=== PATIENT | male | born 1965 | race Caucasian/White ===

== ENCOUNTER 2017-12-21 07:43 | Emergency (ER) | payer SELFPAY ==
[~2017-12-21] VITALS: Ht 167.6 cm; Wt 66.9 kg
[2017-12-21] MEDS ORDERED: DIPHENHYDRAMINE 50 MG/ML, 1ML ONE (08:26)
[2017-12-21] MEDS ORDERED: methylPREDNISolone SOD SUCC 125 MG/2 ML ONE (08:26)
[2017-12-21] MEDS ORDERED: FAMOTIDINE 20 MG/2 ML ONE (08:26)
[2017-12-21] MEDS ORDERED: DIPHENHYDRAMINE 50 MG/ML, 1ML IVPush ONE (08:30)
[2017-12-21] MEDS ORDERED: methylPREDNISolone SOD SUCC 125 MG/2 ML IVPush ONE (08:30)
[2017-12-21] MEDS ORDERED: FAMOTIDINE 20 MG/2 ML IVPush ONE (08:30)
[2017-12-21 10:10] VITALS: BP 114/76
== END 2017-12-21 10:13 | disposition home or self-care (01) ==
LOC: ED 10:07
DX: T78.3XXA Angioneurotic edema, initial encounter (principal); T78.40XA Allergy, unspecified, initial encounter; X58.XXXA Exposure to other specified factors, initial encounter; F15.10 Other stimulant abuse, uncomplicated
CPT/HCPCS: 96374; 96375; 99284; J1200; J2930; S0028

== ENCOUNTER 2018-01-18 00:21 | Emergency (ER) | payer OTHER ==
[~2018-01-18] VITALS: Ht 175.3 cm; Wt 85.0 kg
[2018-01-18 00:23] VITALS: BP 111/74
== END 2018-01-18 00:44 | disposition left against medical advice (07) ==
LOC: ED 00:38
DX: R51 Headache (principal); Z53.21 Procedure and treatment not carried out due to patient leaving prior to being seen by health care provider

== ENCOUNTER 2018-02-18 04:59 | Emergency (ER) | payer SELFPAY ==
[~2018-02-18] VITALS: Ht 162.6 cm; Wt 57.9 kg
[2018-02-18 05:09] VITALS: BP 126/93
== END 2018-02-18 05:17 | disposition left against medical advice (07) ==
LOC: ED 05:10
DX: Z53.21 Procedure and treatment not carried out due to patient leaving prior to being seen by health care provider (principal)

== ENCOUNTER 2018-10-23 15:15 | Emergency (ER) | payer SELFPAY ==
[~2018-10-23] VITALS: Ht 162.6 cm; Wt 70.0 kg
[2018-10-23] MEDS ORDERED: THIAMINE 100 MG/ML, 2ML IM ONE (16:00)
[2018-10-23 16:06] LABS: BASOPHILS # (AUTO) 0.05 x10^3/uL (0-0.1); BASOPHILS % (AUTO) 1 % (0-1); EOSINOPHILS # (AUTO) 0.21 x10^3/uL (0-0.4); EOSINOPHILS % (AUTO) 3 % (1-7); LYMPHOCYTES % (AUTO) 38 % (22-44); MD NO; MEAN CORPUSCULAR HEMOGLOBIN 32.4 pg (27.5-34.5); MEAN CORPUSCULAR HGB CONC 33.6 g/dL (33.2-36.2); MEAN CORPUSCULAR VOLUME 96.6 fL (81-97); MEAN PLATELET VOLUME 8.6 fL (7.4-10.4); MONOCYTES # (AUTO) 0.52 x10^3/uL (0.2-0.8); MONOCYTES % (AUTO) 8 % (2-9); NEUTROPHILS # (AUTO) 3.53 x10^3/uL (1.8-6.8); NEUTROPHILS % (AUTO) 51 % (42-75); PLATELET COUNT 179 x10^3/uL (130-400); RED BLOOD COUNT 4.83 x10^6/uL (4.38-5.82); RED CELL DISTRIBUTION WIDTH 15.1 % (9.4-14.8)
[2018-10-23 16:12] LABS: ALBUMIN 3.8 g/dL (3.4-5.0); ANION GAP 8 mmol/L (5-15); CALCIUM 8.3 mg/dL (8.5-10.1); CHLORIDE 111 mmol/L (98-107); CREATININE 0.88 mg/dL (0.7-1.3)
[2018-10-23 20:51] VITALS: BP 118/71
[2018-10-23] MEDS ORDERED: IBUPROFEN 200 MG TABLET ONE (21:36)
[2018-10-23] MEDS ORDERED: IBUPROFEN 200 MG TABLET PO ONE (22:00)
== END 2018-10-23 21:50 ==
LOC: MERGE 21:45 → ED 21:45
DX: S09.90XA Unspecified injury of head, initial encounter (principal); F10.120 Alcohol abuse with intoxication, uncomplicated; X58.XXXA Exposure to other specified factors, initial encounter; Y93.89 Activity, other specified; Y92.89 Other specified places as the place of occurrence of the external cause; Y99.8 Other external cause status
CPT/HCPCS: 36415; 70450; 72125; 80048; 82040; 85025; 99284

== ENCOUNTER 2019-02-03 04:08 | Emergency (ER) | payer SELFPAY ==
[~2019-02-03] VITALS: Ht 167.6 cm; Wt 69.0 kg
[2019-02-03 04:10] VITALS: BP 121/76
--- NOTE | 2019-02-03 04:33 | NUR ---
PER REG PT HAS ELOPED. PT NOT IN LOBBY AT THIS TIME.
== END 2019-02-03 05:07 | disposition left against medical advice (07) ==
LOC: ED 04:29
DX: R07.0 Pain in throat (principal); Z53.21 Procedure and treatment not carried out due to patient leaving prior to being seen by health care provider

== ENCOUNTER 2019-04-22 18:13 | Emergency (ER) | payer SELFPAY ==
[~2019-04-22] VITALS: Ht 165.1 cm; Wt 80.0 kg
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
[2019-04-22 18:47] LABS: BASOPHILS # (AUTO) 0.03 x10^3/uL (0-0.1); BASOPHILS % (AUTO) 1 % (0-1); EOSINOPHILS # (AUTO) 0.07 x10^3/uL (0-0.4); EOSINOPHILS % (AUTO) 2 % (1-7); LYMPHOCYTES # (AUTO) 2.21 x10^3/uL (1-3.4); LYMPHOCYTES % (AUTO) 52 % (22-44); MD NO; MEAN CORPUSCULAR HEMOGLOBIN 35.2 pg (27.5-34.5); MEAN CORPUSCULAR HGB CONC 34.6 g/dL (33.2-36.2); MEAN CORPUSCULAR VOLUME 101.7 fL (81-97); MEAN PLATELET VOLUME 8.6 fL (7.4-10.4); MONOCYTES # (AUTO) 0.32 x10^3/uL (0.2-0.8); MONOCYTES % (AUTO) 7 % (2-9); NEUTROPHILS # (AUTO) 1.67 x10^3/uL (1.8-6.8); NEUTROPHILS % (AUTO) 39 % (42-75); PLATELET COUNT 107 x10^3/uL (130-400); RED BLOOD COUNT 3.73 x10^6/uL (4.38-5.82); RED CELL DISTRIBUTION WIDTH 15.8 % (9.4-14.8)
[2019-04-22 18:54] LABS: ALBUMIN 2.8 g/dL (3.4-5.0); ANION GAP 9 mmol/L (5-15); CALCIUM 7.6 mg/dL (8.5-10.1); CHLORIDE 109 mmol/L (98-107)
[2019-04-22 18:56] LABS: ALKALINE PHOSPHATASE 101 U/L (45-117)
[2019-04-22 19:13] LABS: ALANINE AMINOTRANSFERASE 93 U/L (12-78)
--- NOTE | 2019-04-22 19:39 | NUR ---
PT AMBULATED IN HALLWAY AND BACK INTO BED. POC DISCUSSED. PT GIVEN WATER PER REQUEST. PT DENIES FURTHER NEEDS AT THIS TIME.
[2019-04-22 19:40] VITALS: BP 110/65
--- NOTE | 2019-04-22 20:23 | NUR ---
PT GIVEN AXI VOUCHER FOR SAFE DC HOME
== END 2019-04-22 20:24 | disposition home or self-care (01) ==
LOC: ED 19:50
DX: G89.11 Acute pain due to trauma (principal); M25.512 Pain in left shoulder; S09.8XXA Other specified injuries of head, initial encounter; Z72.9 Problem related to lifestyle, unspecified; F10.10 Alcohol abuse, uncomplicated; F17.200 Nicotine dependence, unspecified, uncomplicated; Y00.XXXA Assault by blunt object, initial encounter; Y93.89 Activity, other specified; Y92.410 Unspecified street and highway as the place of occurrence of the external cause; Y99.8 Other external cause status; R07.9 Chest pain, unspecified
CPT/HCPCS: 36415; 70450; 71045; 72125; 80053; 80307; 85025; 99284